=== PATIENT | female | born 1980 | race Caucasian/White ===

== ENCOUNTER → 2017-07-24 | Outpatient (CLI) | payer BC ==
--- NOTE | 2017-07-26 10:34 | MM ---
Reason for exam: screening (asymptomatic). Last mammogram was performed 5 years and 7 months ago. History: Patient has history of other cancer at age 19. Family history of breast cancer in mother at age 40 and breast cancer in paternal grandmother. Took hormonal contraceptives for 2 years. Physical Findings: A clinical breast exam by your physician is recommended on an annual basis and results should be correlated with mammographic findings. MG 3D Screening Mammo W/Cad Bilateral CC and MLO view(s) were taken. XCCL view(s) were taken of the right breast. Prior study comparison: January 02, 2012, CAD bilateral diagnostic mammogram. December 23, 1998, bilateral special view mammogram. The breast tissue is heterogeneously dense. This may lower the sensitivity of mammography. There is no discrete abnormality. ASSESSMENT: Negative, BI-RAD 1 RECOMMENDATION: Routine screening mammogram of both breasts in 1 year.
== END | disposition home or self-care (01) ==
LOC: RADMAMWWP 09:12
PROVIDERS: ATTEND Family Medicine
DX: Z12.31 Encounter for screening mammogram for malignant neoplasm of breast (principal)
CPT/HCPCS: 77063; 77067

== ENCOUNTER 2019-01-09 15:22 | Emergency (ER) | payer BC ==
[2019-01-09 15:29] VITALS: RESP 18
[2019-01-09] MEDS ORDERED: LIDOCAINE 1%-EPI 1:100,000 20 ML VIAL SQ STA (15:59)
[2019-01-09] MEDS ORDERED: DIPH,PERTUS(ACELL)TETVAC-LF 0.5 ML VIAL IM ONE (15:59)
--- NOTE | 2019-01-09 16:21 | ED ---
General Adult HPI - General Chief complaint: Wound/Laceration Stated complaint: Laceration Time Seen by Provider: 01/09/19 15:58 Source: patient, RN notes reviewed Mode of arrival: ambulatory Limitations: no limitations - History of Present Illness Initial comments: 38-year-old female presents to the emergency department for laceration to the left forearm. Patient was trying to cut open a toy for her daughter when she accidentally slipped with a pocket knife and cut her left arm. Patient states it was bleeding significantly so she called EMS because she did not feel she could drive. Bleeding has ceased on presentation. Patient states it is painful to move her hand but denies any weakness or difficulty doing so. Denies any loss of sensation. Patient has no other complaints at this time including shortness of breath, chest pain, abdominal pain, nausea or vomiting, headache, or visual changes. - Related Data Home Medications Medication Instructions Recorded Confirmed Insulin Lispro [Humalog] 100 unit SQ BID 04/24/14 05/06/14 Ondansetron [Zofran] 4 mg PO Q8HR PRN 05/01/14 05/06/14 Acetaminophen Tab [Tylenol] 325 mg PO Q4H PRN 05/04/14 05/06/14 Calcium Carbonate [Tums] 500 mg PO TID 05/04/14 05/06/14 Flintstones Vitamins 1 tab PO BID 05/04/14 05/06/14 Insulin NPH Human Isophane 0 unit SQ BID PRN 05/04/14 05/06/14 [humuLIN N Kwikpen] Simethicone [Gas-X] 125 mg PO DAILY PRN 05/04/14 05/06/14 Previous Rx's Medication Instructions Recorded Hydrocodone/Acetaminophen [Danube 1 each PO Q4HR PRN #30 tab 05/08/14 5-325] Ibuprofen [Motrin] 600 mg PO Q6HR PRN #30 tab 05/08/14 Allergies Allergy/AdvReac Type Severity Reaction Status Date / Time apricot Allergy Anaphylaxis Verified 01/09/19 15:29 aspirin Allergy Rash/Hives Verified 01/09/19 15:29 codeine Allergy Rash/Hives Verified 01/09/19 15:29 Iodine and Iodide Containing Allergy Rash/Hives Verified 01/09/19 15:29 Produc loratadine [From Claritin-D] Allergy Rash/Hives Verified 01/09/19 15:29 Penicillins Allergy Anaphylaxis Verified 01/09/19 15:29 pseudoephedrine sulfate Allergy Rash/Hives Verified 01/09/19 15:29 [From Claritin-D] sulfamethoxazole Allergy Rash/Hives Verified 01/09/19 15:29 [From Bactrim] tree nut Allergy Anaphylaxis Verified 01/09/19 15:29 trimethoprim [From Bactrim] Allergy Rash/Hives Verified 01/09/19 15:29 zinc oxide Allergy Rash/Hives Verified 01/09/19 15:29 adhesive AdvReac Rash/Hives Verified 01/09/19 15:29 MMR vaccine Allergy Severe Unknown Uncoded 01/09/19 15:29 Childhood mushroom Allergy Anaphylaxis Uncoded 01/09/19 15:29 mycins Allergy Anaphylaxis Uncoded 01/09/19 15:29 Review of Systems ROS Statement: Those systems with pertinent positive or pertinent negative responses have been documented in the HPI. ROS Other: All systems not noted in ROS Statement are negative. Past Medical History Past Medical History: Cancer, Diabetes Mellitus, GERD/Reflux, Pneumonia Additional Past Medical History / Comment(s): uterine fibroid, endometriosis, gestational diabetes, skin cancer arm, insomnia, raynauds,uterine fibroid,e ndometriosis History of Any Multi-Drug Resistant Organisms: None Reported Past Surgical History: Section Additional Past Surgical History / Comment(s): rt.salivary gland removal,laproscopic for fibriods Additional Past Anesthesia/Blood Transfusion Reaction / Comment(s): states"high tolerance" to anesthesia and they usually give more anesthesia. Past Psychological History: Depression Smoking Status: Current every day smoker Past Alcohol Use History: Occasional Past Drug Use History: None Reported - Past Family History Mother Family Medical History: Cancer Sister(s) Family Medical History: Cancer General Exam Limitations: no limitations General appearance: alert, in no apparent distress Head exam: Present: atraumatic, normocephalic, normal inspection Eye exam: Present: normal appearance, PERRL, EOMI. Absent: scleral icterus, conjunctival injection, periorbital swelling ENT exam: Present: normal exam, mucous membranes moist Neck exam: Present: normal inspection. Absent: tenderness, meningismus, lymphadenopathy Respiratory exam: Present: normal lung sounds bilaterally. Absent: respiratory distress, wheezes, rales, rhonchi, stridor Cardiovascular Exam: Present: regular rate, normal rhythm, normal heart sounds. Absent: bradycardia, tachycardia, irregular rhythm Extremities exam: Present: other (Patient has a 2 cm laceration noted to the volar mid forearm. She has full range of motion of all digits in the left upper extremity including full flexion and strength in all digits of the left upper extremity. She has full sensation in the left upper 70. She is able to adductor and abductor all fingers. She is able to touch fifth digit to first digit. She is able to make an okay sign. Capillary refills less than 2 seconds. Radial pulses 2+ in the left and right upper extremities.) Neurological exam: Present: alert Course Vital Signs 01/09/19 15:25 Temperature 98.3 F Pulse Rate 109 H Respiratory 18 Rate Blood Pressure 121/72 O2 Sat by Pulse 98 Oximetry Procedures - Laceration Laceration #1 Consent Obtained: verbal consent Indication: laceration Site: upper extremity Size (cm): 3 Description: linear Depth: simple, single layer Anesthetic Used: lidocaine 1%, with epi Anesthesia Technique: local infiltration Amount (mls): 4 Pre-repair: wound explored, irrigated extensively (Saline pressure irrigation), deep structures intact Size of Sutures: 5-0 Number of Sutures: 4 Technique: simple, interrupted Patient Tolerated Procedure: well, no complications Medical Decision Making - Medical Decision Making Those are stable. Pulse is 109 however patient likely tachycardic secondary to anxiety.This was achieved prior to arrival. Neurovascular status intact in the left upper extremity. Dr. Ceballos also examined the patient and agrees with this. We'll pulse 2+ with capillary refill less than 2 seconds. Full range motion of the left hand. No obvious deep structure injury. Wound was cleaned thoroughly and sutured with or simple interrupted sutures. X-ray showed a lucency consistent with laceration over the volar surface of the distal left forearm without suspicious radiodense foreign body. Patient does have some swelling to the forearm, was given pain medication. Patient was updated with tetanus. Patient will be discharged home. Will take Tylenol and Motrin for pain. No bleeding after laceration repair. Disposition Clinical Impression: Laceration Disposition: HOME SELF-CARE Condition: Good Instructions (If sedation given, give patient instructions): Laceration (ED), Care For Your Stitches (ED) Additional Instructions: Take Motrin and Tylenol for pain. Arm elevated above heart and ice the area to improve swelling. Please monitor for signs of infection such as spreading or streaking redness, drainage, fever and return if these occur. Return if you have any other worsening symptoms. Otherwise follow-up with primary care in 1-2 days for a wound recheck. Return in 7-10 days for suture removal. Is patient prescribed a controlled substance at d/c from ED?: No Referrals: Francie Alexandre DO [Primary Care Provider] - 1-2 days Time of Disposition: 16:50
--- NOTE | 2019-01-09 16:29 | XR ---
EXAMINATION TYPE: XR forearm LT DATE OF EXAM: 01/09/2019 CLINICAL HISTORY: Laceration injury with pain. TECHNIQUE: Two views of the left forearm are obtained. COMPARISON: None. FINDINGS: There is no acute fracture or dislocation seen in the left radius or ulna. The left elbow and wrist joints appear within normal limits. Lucency consistent with laceration over the volar jonathan face distal diaphyseal level of the forearm is seen without suspicious radiodense foreign body. Impression: As above.
[2019-01-09] MEDS ORDERED: HYDROcodone/APAP 5-325MG 1 EACH TAB PO STA (16:35)
[2019-01-09 17:01] VITALS: BP 100/77; PULSE 98; TEMP 98.1
== END 2019-01-09 17:00 | disposition home or self-care (01) ==
LOC: EC 15:22
DX: S51.812A Laceration without foreign body of left forearm, initial encounter (principal); F17.200 Nicotine dependence, unspecified, uncomplicated; Z88.0 Allergy status to penicillin; Z88.1 Allergy status to other antibiotic agents; Z88.2 Allergy status to sulfonamides; Z88.5 Allergy status to narcotic agent; Z88.6 Allergy status to analgesic agent; Z88.7 Allergy status to serum and vaccine; Z88.8 Allergy status to other drugs, medicaments and biological substances; Z91.018 Allergy to other foods; Z91.048 Other nonmedicinal substance allergy status; Z79.4 Long term (current) use of insulin; Z85.828 Personal history of other malignant neoplasm of skin; Z23 Encounter for immunization; W26.0XXA Contact with knife, initial encounter; Y93.89 Activity, other specified; Y92.009 Unspecified place in unspecified non-institutional (private) residence as the place of occurrence of the external cause
CPT/HCPCS: 12002; 90471; 90715; 99283

== ENCOUNTER 2019-09-20 12:46 | Emergency (ER) | payer BC ==
[2019-09-20 13:14] VITALS: TEMP 98.6
--- NOTE | 2019-09-20 13:51 | ED ---
Head Injury HPI - General Chief complaint: Head Injury Stated complaint: head injury Time Seen by Provider: 09/20/19 13:20 Source: patient Mode of arrival: wheelchair Limitations: no limitations - History of Present Illness Initial comments: Patient is a 38-year-old female presenting to the emergency Department with complaints of a head injury that happened approximately 2 hours prior to arrival. 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 Patient states she did not loose consciousness but did have an episode of vomiting shortly after. She felt a little nauseous and dizzy as well. Presently, patient has a mild headache, very mild nausea. She denies being dizzy. She states she did have some water to drink. She denies any previous head injuries. She has no pertinent past medical history, takes no medications, no blood thinners. She has no further complaints at this time. Upon arrival to the ER, her vitals are stable. - Related Data Home Medications Medication Instructions Recorded Confirmed Insulin Lispro [Humalog] 100 unit SQ BID 04/24/14 05/06/14 Ondansetron [Zofran] 4 mg PO Q8HR PRN 05/01/14 05/06/14 Acetaminophen Tab [Tylenol] 325 mg PO Q4H PRN 05/04/14 05/06/14 Calcium Carbonate [Tums] 500 mg PO TID 05/04/14 05/06/14 Flintstones Vitamins 1 tab PO BID 05/04/14 05/06/14 Insulin NPH Human Isophane 0 unit SQ BID PRN 05/04/14 05/06/14 [humuLIN N Kwikpen] Simethicone [Gas-X] 125 mg PO DAILY PRN 05/04/14 05/06/14 Previous Rx's Medication Instructions Recorded Hydrocodone/Acetaminophen [Spalding 1 each PO Q4HR PRN #30 tab 05/08/14 5-325] Ibuprofen [Motrin] 600 mg PO Q6HR PRN #30 tab 05/08/14 Allergies/Adverse reactions: Allergies Allergy/AdvReac Type Severity Reaction Status Date / Time apricot Allergy Anaphylaxis Verified 09/20/19 13:14 aspirin Allergy Rash/Hives Verified 09/20/19 13:14 codeine Allergy Rash/Hives Verified 09/20/19 13:14 Iodine and Iodide Containing Allergy Rash/Hives Verified 09/20/19 13:14 Produc loratadine [From Claritin-D] Allergy Rash/Hives Verified 09/20/19 13:14 Penicillins Allergy Anaphylaxis Verified 09/20/19 13:14 pseudoephedrine sulfate Allergy Rash/Hives Verified 09/20/19 13:14 [From Claritin-D] sulfamethoxazole Allergy Rash/Hives Verified 09/20/19 13:14 [From Bactrim] tree nut Allergy Anaphylaxis Verified 09/20/19 13:14 trimethoprim [From Bactrim] Allergy Rash/Hives Verified 09/20/19 13:14 zinc oxide Allergy Rash/Hives Verified 09/20/19 13:14 adhesive AdvReac Rash/Hives Verified 09/20/19 13:14 MMR vaccine Allergy Severe Unknown Uncoded 09/20/19 13:14 Childhood mushroom Allergy Anaphylaxis Uncoded 09/20/19 13:14 mycins Allergy Anaphylaxis Uncoded 09/20/19 13:14 Review of Systems ROS Statement: Those systems with pertinent positive or pertinent negative responses have been documented in the HPI. ROS Other: All systems not noted in ROS Statement are negative. Past Medical History Past Medical History: Cancer, Diabetes Mellitus, GERD/Reflux, Pneumonia Additional Past Medical History / Comment(s): uterine fibroid, endometriosis, gestational diabetes, skin cancer arm, insomnia, raynauds,uterine fibroid,endometriosis History of Any Multi-Drug Resistant Organisms: None Reported Past Surgical History: Section Additional Past Surgical History / Comment(s): rt.salivary gland removal,laproscopic for fibriods Additional Past Anesthesia/Blood Transfusion Reaction / Comment(s): states"high tolerance" to anesthesia and they usually give more anesthesia. Past Psychological History: Depression Smoking Status: Current every day smoker Past Alcohol Use History: Occasional Past Drug Use History: None Reported - Past Family History Mother Family Medical History: Cancer Sister(s) Family Medical History: Cancer General Exam - General Exam Comments Initial Comments: GENERAL: Well-appearing, well-nourished and in no acute distress. HEAD: Small hematoma of the right forehead. normocephalic. No signs of basal skull f racture. EYES: Pupils equal round and reactive to light, extraocular movements intact, sclera anicteric, conjunctiva are normal. ENT: TMs normal, nares patent, oropharynx clear without exudates. Moist mucous membranes. NECK: Normal range of motion, supple without lymphadenopathy or JVD. LUNGS: Breath sounds clear to auscultation bilaterally and equal. No wheezes rales or rhonchi. HEART: Regular rate and rhythm without murmurs, rubs or gallops. ABDOMEN: Soft, nontender, normoactive bowel sounds. No guarding, no rebound. No masses appreciated. : Deferred EXTREMITIES: Normal range of motion, no pitting or edema. No clubbing or cyanosis. NEUROLOGICAL: Cranial nerves II through XII grossly intact. Normal speech, normal gait. PSYCH: Normal mood, normal affect. SKIN: Warm, Dry, normal turgor, no rashes or lesions noted. Limitations: no limitations Course Vital Signs 09/20/19 09/20/19 13:11 14:09 Temperature 98.6 F 98.6 F Pulse Rate 111 H 80 Respiratory 18 16 Rate Blood Pressure 104/69 110/70 O2 Sat by Pulse 98 98 Oximetry Medical Decision Making - Medical Decision Making Patient 38-year-old female here after hitting the front of her right forehead on a door. She did have one episode of vomiting, mild headache. Her exam is unremarkable except for a small hematoma the right side of her forehead. No neuro deficits. This happened approximately 2 hours prior to arrival. I discussed with patient that she most likely has a mild concussion. We discussed brain rest, limit physical activity. She does have the next 2 days off of work. She'll follow up with her PCP. Strict return parameters were discussed with the patient and she verbalized understanding. She is in agreement with this plan of care. Case discussed with Dr. Fierro. Disposition Clinical Impression: Hematoma of scalp, Concussion Disposition: HOME SELF-CARE Condition: Stable Instructions (If sedation given, give patient instructions): Concussion (ED) Additional Instructions: Please return to the Emergency Department if symptoms worsen or any other concerns. Rest, increase fluid intake. Is patient prescribed a controlled substance at d/c from ED?: No Referrals: Jocelyn Arriaza MD [Primary Care Provider] - 1-2 days
[2019-09-20 14:10] VITALS: BP 110/70; PULSE 80; RESP 16
== END 2019-09-20 14:09 | disposition home or self-care (01) ==
LOC: EC 12:46
DX: S00.03XA Contusion of scalp, initial encounter (principal); S06.0X0A Concussion without loss of consciousness, initial encounter; E11.9 Type 2 diabetes mellitus without complications; F17.200 Nicotine dependence, unspecified, uncomplicated; Z79.4 Long term (current) use of insulin; Z88.1 Allergy status to other antibiotic agents; Z91.018 Allergy to other foods; Z88.7 Allergy status to serum and vaccine; Z88.2 Allergy status to sulfonamides; Z88.8 Allergy status to other drugs, medicaments and biological substances; Z88.5 Allergy status to narcotic agent; Z88.6 Allergy status to analgesic agent; Z85.828 Personal history of other malignant neoplasm of skin; W22.09XA Striking against other stationary object, initial encounter; Y93.E9 Activity, other interior property and clothing maintenance; Y92.59 Other trade areas as the place of occurrence of the external cause
CPT/HCPCS: 99283

== ENCOUNTER → 2023-06-27 | Outpatient (CLI) | payer BC ==
--- NOTE | 2023-06-30 14:57 | MM ---
Reason for Exam: Screening (asymptomatic). Last mammogram was performed 5 year(s) and 11 month(s) ago. Patient History: Menarche at age 11. First Full-Term at age 24. Other cancer, age 19. Patient used Hormonal Contraceptives for 2 years. Paternal grandmother had breast cancer. Mother had breast cancer, age 40. Last menstrual period: 06/06/2023 Risk Values: Nery 5 year model risk: 1.4%. NCI Lifetime model risk: 18.3%. Prior Study Comparison: 12/23/1998 Bilateral Special View Mammogram, [facility]. 01/02/2012 Bilateral Diagnostic Mammogram, [facility]. 07/24/2017 Bilateral Screening Mammogram, [facility]. Tissue Density: The breasts are heterogeneously dense, which may obscure small masses. Findings: Analyzed By CAD. The pattern is symmetrical. Pattern appears stable. No significant interval change No suspicious groups of microcalcifications, spiculated or lobular masses, architectural distortion or other secondary signs of malignancy are mammographically apparent. Overall Assessment: Negative, BI-RAD 1 Management: Screening Mammogram of both breasts in 1 year. A negative mammogram report should not preclude additional follow up of suspicious palpable abnormalities. Patient should continue monthly self breast exam. A clinical breast exam by your physician is recommended on an annual basis and results should be correlated with mammographic findings. Electronically signed and approved by: Gulshan Anthony D.O. Radiologis
== END | disposition home or self-care (01) ==
LOC: RADMAMWWP 09:33
PROVIDERS: ATTEND Family Medicine
DX: Z12.31 Encounter for screening mammogram for malignant neoplasm of breast (principal); Z80.3 Family history of malignant neoplasm of breast
CPT/HCPCS: 77063; 77067